=== PATIENT | male | born 1955 | race Two or more races ===

== ENCOUNTER 2020-08-30 12:52 | Outpatient (CLI) | payer OTHER ==
[~2020-08-30 12:52] MED LIST: AMBIEN5 MG; ANORO ELLIPTA1 EACH; ARNUITY ELLIP200 MCG; CHLORTRIMETON; COZAAR25 MG; GLIMEPIRIDE2 MG; MONTELUKAST SODI4 M1; NORVASC10 MG; PRAVASTATIN SOD20 MG; RAYOS5 MG; SERTRALINE20 MG/1 ML; TRADJENTA
== END 2020-08-30 13:03 | disposition home or self-care (01) ==
LOC: SONOGRAMA 12:52
PROVIDERS: ATTEND Urology
DX: D41.4 Neoplasm of uncertain behavior of bladder (principal); R31.0 Gross hematuria

== ENCOUNTER 2020-09-06 07:47 | Day surgery (SDC) | payer OTHER | END 2020-09-06 16:10 | disposition home or self-care (01) | LOC: CIR.AMB 07:47 | PROVIDERS: ATTEND Urology | DX: C67.4 Malignant neoplasm of posterior wall of bladder (principal); Z20.828 Contact with and (suspected) exposure to other viral communicable diseases ==